=== PATIENT | male | born 1955 | race American Indian/Alaskan Native ===

== ENCOUNTER 2017-09-08 09:03 | Outpatient (CLI) | payer MEDICARE ==
[2017-09-08 09:59] LABS: Blood Urea Nitrogen 11 mg/dL (9-20)
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
== END 2017-09-08 09:04 | disposition home or self-care (01) ==
LOC: CT 09:03
PROVIDERS: ATTEND Internal Medicine Hematology & Oncology
DX: J32.0 Chronic maxillary sinusitis (principal); R55 Syncope and collapse; E11.9 Type 2 diabetes mellitus without complications; I10 Essential (primary) hypertension; E78.5 Hyperlipidemia, unspecified; K21.9 Gastro-esophageal reflux disease without esophagitis; N40.0 Benign prostatic hyperplasia without lower urinary tract symptoms
CPT/HCPCS: 36415; 70470; 82565; 84520; Q9967

== ENCOUNTER 2017-10-18 08:54 | Outpatient (CLI) | payer MEDICARE ==
--- NOTE | 2017-10-18 10:19 | Mammography Report ---
BONE DENSITY STUDY: Vitamin deficiency. DEFINITIONS: BMD = Bone Mineral Density T-score = BMD related to mean peak bone mass of young adult (mean expressed in Standard Deviation) Z-score = Age matched BMD expressed in SD World Health Organization (WHO) Diagnostic Criteria Normal T-score > -1 SD Osteopenia T-score between -1 and -2.4 SD Osteoporosis T-score -2.5 SD or below FINDINGS: The weighted average BMD of lumbar spine L1-L4 is 1.258 with a T-score of 1.5. The weighted average BMD of the left hip is 1.046 with a T-score of 0.1. IMPRESSION: The patient's average T-score is diagnostic for normal bone density and low relative risk for fracture. NOTE: BMD is not the only risk factor for fracture; also consider factors such as the patient's age, risk of falling, previous osteoporotic fracture, family history of osteoporotic fractures, current smoker, and low body weight. Glynn's triangle is a region of interest in femur, predominantly of trabecular bone. It is not a true anatomic site, and [facility] does not recommend its use clinically.
== END 2017-10-18 08:55 | disposition home or self-care (01) ==
LOC: MAMMO 08:54
PROVIDERS: ATTEND Internal Medicine Hematology & Oncology
DX: E61.8 Deficiency of other specified nutrient elements (principal); F17.210 Nicotine dependence, cigarettes, uncomplicated; M81.0 Age-related osteoporosis without current pathological fracture; M06.9 Rheumatoid arthritis, unspecified; M54.5 Low back pain
CPT/HCPCS: 77080

== ENCOUNTER 2017-12-23 08:45 | Emergency (ER) | payer MEDICARE ==
[2017-12-23 09:32] LABS: Bilirubin,Urine NEG (Negative); Blood,Urine NEG (Negative); Color,Urine Yellow (Yellow); Mucus,Urine FEW /HPF; Protein,Urine <15 mg/dL mg/dL (Negative)
[2017-12-23] MEDS ORDERED: TORADOL IM ONE (09:46)
--- NOTE | 2017-12-23 09:46 | Emergency Department Report ---
HPI - General Chief Complaint: Back Pain/Injury Time Seen by Provider: 12/23/17 09:30 - HPI HPI: 62-year-old -[place] male presents to the emergency department with a complaint of a 4 day history of left lower lateral back pain. The pain is sharp and mostly occurs when he goes to sit or stand or with certain movements. He denies any dysuria, hematuria, constipation, diarrhea, fever, nausea or vomiting. He denies any trauma or any specific event where he feels that he may have pulled his back. He saw his primary care physician, Dr. Corona, and was given some cyclobenzaprine but that has not been helping. He has a past medical history of hypertension. No recent travel or sick contacts at home. ED Past Medical Hx - Past Medical History Previous Medical History?: Yes Hx Hypertension: Yes Hx Dementia: Yes - Surgical History Past Surgical History?: Yes Additional Surgical History: right TKR - Social History Smoking Status: Never Smoker Substance Use Type: None - Medications Home Medications: Home Medications Medication Instructions Recorded Confirmed Last Taken Type HYDROcodone/APAP 5-325 [[place] 1 each PO Q8H PRN #10 tablet 12/23/17 Unknown Rx 5/325] Ibuprofen [Motrin 600 MG tab] 600 mg PO Q8H PRN #20 tablet 12/23/17 Unknown Rx ED Review of Systems ROS: Stated complaint: LEFT SIDE PAIN Other details as noted in HPI Comment: All other systems reviewed and negative Constitutional: denies: chills, fever Eyes: denies: eye pain, eye discharge, vision change ENT: denies: ear pain, throat pain Respiratory: denies: cough, shortness of breath, wheezing Cardiovascular: denies: chest pain, palpitations Gastrointestinal: denies: abdominal pain, nausea, diarrhea Genitourinary: denies: urgency, dysuria Musculoskeletal: back pain. denies: arthralgia Skin: denies: rash, lesions Neurological: denies: headache, weakness, paresthesias Physical Exam - Physical Exam Vital Signs: Vital Signs 12/23/17 09:02 Temperature 98.2 F Pulse Rate 83 Respiratory 16 Rate Blood Pressure 136/82 O2 Sat by Pulse 96 Oximetry Physical Exam: GENERAL: The patient is well-developed well-nourished. HENT: Normocephalic. Atraumatic. Patient has moist mucous membranes. EYES: Extraocular motions are intact. NECK: Supple. Trachea is midline. CHEST/LUNGS: Clear to auscultation. There is no respiratory distress noted. HEART/CARDIOVASCULAR: Regular. There is no tachycardia. There is no murmur. ABDOMEN: Abdomen is soft, nontender. Patient has normal bowel sounds. There is no abdominal distention. SKIN: Skin is warm and dry. NEURO: The patient is awake, alert, and oriented. The patient is cooperative. The patient has no focal neurologic deficits. The patient has normal speech and gait. DTRs patella +2 over 4 bilaterally. MUSCULOSKELETAL: There is no tenderness or deformity. There is no limitation range of motion. There is no evidence of acute injury. BACK: No midline thoracic or lumbar tenderness to palpation, step-off or deformity. There is reproducible left-sided lumbar and lower thoracic paraspinal tenderness with some tight musculature. ED Course Vital Signs 12/23/17 09:02 Temperature 98.2 F Pulse Rate 83 Respiratory 16 Rate Blood Pressure 136/82 O2 Sat by Pulse 96 Oximetry ED Medical Decision Making - Lab Data Result diagrams: 12/23/17 11:01 - Medical Decision Making Patient's been dealing with a few days of left lower to mid back pain that causes sharp pains with certain movements. It is reproducible to palpation. No midline tenderness. No recent trauma. Urinalysis did not show any signs of urinary tract infection or hematuria and therefore it is lower suspicion for the patient had pyelonephritis or nephrolithiasis. His metabolic panel did not show any renal insufficiency or any other electrolyte abnormalities. The patient has no problems with bowel or bladder, numbness or paresthesias or any neurological deficits. He has low suspicion for any of the emergent condition such as cauda equina, epidural abscess or cord compression syndrome. It seems more probable that the patient has a musculoskeletal issue such as a muscle spasm. The Toradol shot seemed to help with his discomfort. He will be placed on some ibuprofen and a small course of pain medication, to take the place of his cyclobenzaprine. We discussed a hot bath versus heating pad and follow-up with his primary care physician. He will return to the ER with any worsening of his symptoms or any acute distress. - Differential Diagnosis muscle spasm, lumbar strain, nephrolithiasis Critical Care Time: No Critical care attestation.: If time is entered above; I have spent that time in minutes in the direct care of this critically ill patient, excluding procedure time. ED Disposition Clinical Impression: Muscle spasm of back Back pain Qualifiers: Back pain location: low back pain Chronicity: acute Back pain laterality: left Sciatica presence: without sciatica Qualified Code(s): M54.5 - Low back pain Disposition: DC- TO HOME OR SELFCARE Is pt being admited?: No Condition: Stable Instructions: Muscle Spasm (ED), Back Pain (ED) Additional Instructions: Please follow-up with your primary care physician in the next few days. Return to the emergency Department with any worsening of her symptoms, development of numbness, problems with urinating or having bowel movements, or with any acute distress. You have been prescribed a medication that is sedating and therefore should not be taken prior to driving, working, and responsible for children and in no way should be mixed with alcohol of any quantity. If you choose to take the pain medication, take it in the place of the muscle relaxer and not with it as it can be sedating as well. Prescriptions: HYDROcodone/APAP 5-325 [[place] 5/325] 1 each PO Q8H PRN #10 tablet PRN Reason: Pain Ibuprofen [Motrin 600 MG tab] 600 mg PO Q8H PRN #20 tablet PRN Reason: Pain Referrals: ROMULO CORONA DO [Staff Physician] - 3-5 Days Time of Disposition: 11:39
[2017-12-23 11:25] LABS: BUN/Creatinine Ratio 24; Blood Urea Nitrogen 17 mg/dL (9-20); Calcium 8.8 mg/dL (8.4-10.2); Hemolysis Index 4
[2017-12-23 11:51] VITALS: BP 146/72
== END 2017-12-23 11:49 | disposition home or self-care (01) ==
LOC: ED 08:45
DX: M62.830 Muscle spasm of back (principal); I10 Essential (primary) hypertension; Z96.651 Presence of right artificial knee joint
CPT/HCPCS: 36415; 80048; 81001; 96372; 99283; J1885

== ENCOUNTER 2020-10-05 11:40 | Emergency (ER) | payer MEDICARE ==
[2020-10-05] MEDS ORDERED: HYDROcodone/ACETAMINOPHEN 10-325MG TAB PO ONE (14:25)
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
[2020-10-05 15:41] VITALS: BP 119/73
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
== END 2020-10-05 16:11 | disposition home or self-care (01) ==
LOC: ED 11:40
DX: S13.4XXA Sprain of ligaments of cervical spine, initial encounter (principal); S39.012A Strain of muscle, fascia and tendon of lower back, initial encounter; S00.03XA Contusion of scalp, initial encounter; M25.561 Pain in right knee; M25.562 Pain in left knee; M54.6 Pain in thoracic spine; I10 Essential (primary) hypertension; F03.90 Unspecified dementia, unspecified severity, without behavioral disturbance, psychotic disturbance, mood disturbance, and anxiety; Z98.890 Other specified postprocedural states; Z79.899 Other long term (current) drug therapy; V49.49XA Driver injured in collision with other motor vehicles in traffic accident, initial encounter; Y92.410 Unspecified street and highway as the place of occurrence of the external cause; Y93.89 Activity, other specified; Y99.8 Other external cause status
CPT/HCPCS: 70450; 72070; 72100; 72125